=== PATIENT | male | born 1950 | race Caucasian/White ===

== ENCOUNTER 2019-07-02 08:28 | Emergency (ER) | payer MEDICARE, BC ==
[2019-07-02] MEDS ORDERED: Ketorolac Tromethamine 60 MG/2 ML VIAL ONE (09:02)
[2019-07-02] MEDS ORDERED: Dexamethasone 10 MG/ML VIAL ONE (09:02)
== END 2019-07-02 09:35 | disposition home or self-care (01) ==
LOC: SCSER 08:28
DX: G50.0 Trigeminal neuralgia (principal); E78.5 Hyperlipidemia, unspecified
CPT/HCPCS: 96372; 99283; J1100; J1885

== ENCOUNTER 2022-10-06 15:01 | Emergency (ER) | payer MEDICARE, BC ==
[2022-10-06] MEDS ORDERED: Fosphenytoin Sodium 500 mg/10 ml Vial ONE (16:19)
== END 2022-10-06 17:59 | disposition home or self-care (01) ==
LOC: ERS 15:01
DX: G50.0 Trigeminal neuralgia (principal)
CPT/HCPCS: 96365; Q2009

== ENCOUNTER 2022-12-30 08:31 | Outpatient (CLI) | payer MEDICARE, BC ==
[2022-12-30] MEDS ORDERED: Magnevist 469MG/ML 20 ML VIAL ONE (12:43)
== END 2022-12-30 08:32 | disposition home or self-care (01) ==
LOC: TBSIIMAG 08:31
PROVIDERS: ATTEND Urology
DX: R97.20 Elevated prostate specific antigen [PSA] (principal)
CPT/HCPCS: 72197